=== PATIENT | male | born 1975 | race Caucasian/White ===

== ENCOUNTER 2018-07-25 14:32 | Emergency (ER) | payer OTHER ==
[~2018-07-25] VITALS: Ht 177.8 cm; Wt 89.2 kg
[2018-07-25 14:40] VITALS: BP 141/92
--- NOTE | 2018-07-25 14:59 | NUR ---
PT WAS SENT TO [facility] WITH AN OUTPATIENT US AND LAB ORDERS. THEY HAD THE US COMPLETED AND RESULTS WERE CALLED TO URGENT CARE PROVIDER. PTS INSURANCE IS WITH [employer] AND [facility] INFORMED PT THAT THEY WOULD HAVE TO GO TO THE ED TO GET THE LABS COMPLETED BECAUSE THEIR INSURANCE WOULD BE CONSIDERED OUT OF NETWORK IF THE OUT [facility] COMPLETED THEM. IN TRIAGE PT VSS, THEY SPOKE WITH THE URGENT CARE PROVIDER WHO HAD REC'D THE US RESULTS AND INFORMED PT THAT THE US REVELALED A FATTY LIVER. THE URGEN CARE PROVIDER INFORMED THE PATIENT THAT HE COULD WAIT AND HAVE LABS DRAWN ON FRIDAY WHEN LAB CORE IS OPEN. PT LEFT ED PRIOR TO BEING SEEN BY A PROVIDER. UPRIGHT STEADY GAIT NAD NOTED.
== END 2018-07-25 15:07 | disposition left against medical advice (07) ==
LOC: ED 15:00
DX: R10.11 Right upper quadrant pain (principal); Z53.21 Procedure and treatment not carried out due to patient leaving prior to being seen by health care provider